=== PATIENT | female | born 1945 | race Caucasian/White ===

== ENCOUNTER 2017-06-15 17:05 | Emergency (ER) | payer MEDICARE ==
[2017-06-15 21:46] LABS: HEMOGLOBIN 13.6 gm/dl (12.3-15.3); RED BLOOD COUNT 5.24 M/UL (4.00-5.10); WHITE BLOOD COUNT 6.3 K/UL (4.5-11.0)
[2017-06-15 22:05] LABS: BUN/CREATININE RATIO 30 (0-10)
== END 2017-06-16 00:32 | disposition home or self-care (01) ==
LOC: ER1 17:05
PROVIDERS: Family Medicine
DX: I50.9 Heart failure, unspecified (principal); N39.0 Urinary tract infection, site not specified; G89.29 Other chronic pain; M06.9 Rheumatoid arthritis, unspecified; Z88.1 Allergy status to other antibiotic agents
CPT/HCPCS: 36415; 71020; 80053; 81001; 82550; 82553; 83874; 83880; 84484; 85025; 93005; 96374; 99285; J1940